=== PATIENT | female | born 1970 | race Caucasian/White ===

== ENCOUNTER 2018-11-23 10:12 | Emergency (ER) | payer BC ==
[2018-11-23] MEDS ORDERED: ACETAMINOPHEN 1,000 MG/100 ML BTL IVPB ONE (10:32)
[2018-11-23] MEDS ORDERED: 0.9 % SODIUM CHLORIDE 1,000 ML BAG IV ONE (10:32)
[2018-11-23] MEDS ORDERED: ONDANSETRON HCL IV 4 MG/2 ML VIAL IV ONE (10:32)
--- NOTE | 2018-11-23 10:36 | Emergency Department Record ---
History of Present Illness - General Chief Complaint: Abdominal Pain Stated Complaint: ABD PAIN Time Seen by Provider: 11/23/18 10:28 Source: Patient Mode of Arrival: Ambulatory Limitations: No limitations - History of Present Illness Initial Comments: The patient is here due to a 3 day hx of progressively worsening Right sided AP. The pain is sharp and crampy and worse with movement and coughing. She states her appetite has not been good. There has been no reported dysuria, fever, chills, vaginal discharge or bleeding. The patient's only abdominal surgery is a Laparoscopy at age 17. MD Complaint: Abdominal pain Onset/Timin -: Days(s) Location: RLQ Radiation: None Migration to: No migration Severity scale (1-10): 2 Consistency: Constant Improves With: Rest Worsens With: Movement Associated Symptoms: Nausea - Related Data Patient : No Home Medications Medication Instructions Recorded Confirmed Last Taken Omeprazole/Sodium Bicarbonate 1 each PO DAILY 11/23/18 11/23/18 Unknown [Zegerid 40 mg Capsule] Previous Rx's Medication Instructions Recorded Sulfamethoxazole/Trimethoprim 1 tab PO BID #6 tab 11/23/18 [Bactrim Ds] Allergies Allergy/AdvReac Type Severity Reaction Status Date / Time No Known Drug Allergies Allergy Unverified 11/23/18 09:31 Travel Screening - Travel/Exposure Within Last 30 Days Have you traveled within the last 30 days?: No Review of Systems Constitutional: Denies: Chills, Fever Eyes: Denies: Eye discharge ENT: Denies: Congestion Respiratory: Denies: Cough, Dyspnea Past Medical History - SOCIAL HISTORY Smoking Status: Never smoker Alcohol Use: Occasional Drug Use: None - RESPIRATORY Hx Respiratory Disorders: No - CARDIOVASCULAR Hx Palpitations: Yes (PVCs) - NEURO Hx Neuro Disorders: No - GI Hx Reflux: Yes - Hx Genitourinary Disorders: No - ENDOCRINE Hx Endocrine Disorders: Yes Hx Diabetes: No Hx Thyroid Disease: Yes (hypo) - MUSCULOSKELETAL Hx Musculoskeletal Disorders: No - PSYCH Hx Psych Problems: No - HEMATOLOGY/ONCOLOGY Hx Anemia: Yes Hx Cancer: No Family Medical History Any Significant Family History?: Yes Hx Heart Disease: Grandparents Hx HTN: Father, Mother, Grandparents Hx Stroke: Father, Grandparents Physical Exam - General General Appearance: Alert, Oriented x3, Cooperative, No acute distress - Head Head exam: Atraumatic, Normocephalic, Normal inspection - Eye Eye exam: Normal appearance, PERRL - ENT Throat exam: Normal inspection. negative: Tonsillar erythema, Tonsillar exudate - Neck Neck exam: Normal inspection, Full ROM. negative: Tenderness - Respiratory Respiratory exam: Normal lung sounds bilaterally. negative: Respiratory distr ess - Cardiovascular Cardiovascular Exam: Regular rate, Normal rhythm, Normal heart sounds - GI/Abdominal GI/Abdominal exam: Soft, Tenderness (There is significant tenderness over the R side of the abdomen RUQ>RLQ.). negative: Guarding, Organomegaly, Pulsatile mass, Rebound, Rigid - Extremities Extremities exam: Normal inspection, Full ROM, Normal capillary refill. negative: Tenderness Image of Full Body: 1 - Area of pain and tenderness. - Neurological Neurological exam: Alert. negative: Motor sensory deficit Course Vital Signs 11/23/18 10:15 Temperature 99.0 F Pulse Rate 88 Respiratory 20 Rate Blood Pressure 126/80 Pulse Ox 96 - Reevaluation(s) Reevaluation #1: The patient is doing better at this time but is still having some pain. On exam the abdomen is soft with tenderness in the RUQ only. The patient no longer has any RLQ tenderness. It appears she has a normal WBC and a neg CT for appendici tis. 11/23/18 12:30 Reevaluation #2: The patient is doing better at this time but is still having some pain. I did discuss the US results and the need for a Surgical consultation. 11/23/18 14:03 Reevaluation #3: I did discuss the case with Dr. Gonzales and he would like to see the patient on Wednesday to remove the GB. The patient agrees with that plan. She will be discharged with instructions to return to the ER for any worsening symptoms. Presently the patient is very stable and without any pain or any abdominal tenderness. She is up walking with no problems or pain. 11/23/18 14:52 Medical Decision Making - Data Complexity MDM Data: Labs Ordered and/or Reviewed, X-Ray Ordered and/or Reviewed - Lab Data Result diagrams: 11/23/18 10:45 11/23/18 10:45 - Radiology Data Radiology results: Report reviewed (Abd CT: Neg for stone, hydro or Appendicitis. US: Large mobile gallstone 2.7 mm with possible slight GB wall thickening and a positive Dunbar's sign.) Disposition Disposition: Discharge Clinical Impression: Biliary colic Disposition: Home, Self-Care Condition: (2) Stable Instructions: Abdominal Pain (ED) Additional Instructions: Please plan on having your Gallbladder removed Wednesday morning by Dr. Gonzales. Eat a very bland diet with no fatty or fried foods. Use Tylenol or Motrin for pain and return to the ER for any worsening symptoms, pain, fever, or vomiting. Plan on being NPO past midnight. Take the Bactrim as directed. Prescriptions: Sulfamethoxazole/Trimethoprim [Bactrim Ds] 1 tab PO BID #6 tab Referrals: [facility] Specialty Clin[facility] [Provider Group] Darrell Gonzales [DOCTOR OF OSTEOPATH] - Forms: Patient Portal Access Time of Disposition: 14:55 Quality - Quality Measures Quality Measures: N/A - Blood Pressure Screening View Details: Yes Does Patient Have Any of the Following: No Blood Pressure Classification: Pre-Hypertensive BP Reading Systolic Measurement: 126 Diastolic Measurement: 80 Screening for High Blood Pressure: < Pre-Hypertensive BP, F/U Documented > [G8 950] Pre-Hypertensive Follow-up Interventions: Referral to alternative/primary care provider.
[2018-11-23 10:43] LABS: URINE APPEARANCE CLEAR; URINE BILIRUBIN NEGATIVE (NEGATIVE); URINE BLOOD NEGATIVE (NEGATIVE); URINE COLOR YELLOW; URINE GLUCOSE (UA) NEGATIVE (NEGATIVE); URINE KETONE 15 mg/dL (NEGATIVE); URINE LEUKOCYTE ESTERASE SMALL (NEGATIVE); URINE NITRITE NEGATIVE (NEGATIVE); URINE PROTEIN NEGATIVE (NEGATIVE); URINE UROBILINOGEN 0.2 E.U./dL (0.20 - 1.00)
[2018-11-23 10:47] LABS: HCG,QUALITATIVE URINE NEGATIVE (NEGATIVE)
[2018-11-23 11:01] LABS: URINE BACTERIA FEW; URINE RBC 0 - 2 (NONE SEEN)
[2018-11-23 11:13] LABS: ABSOLUTE NEUTROPHIL COUNT 4.14; BASO % 0.5 % (0-6); EOS % 1.2 % (0-6); HEMATOCRIT 39.3 % (35.0-47.0); HEMOGLOBIN 13.1 gm/dl (11.6-16.0); LYMPH % 17.5 % (16-45); MEAN CELL VOLUME 96.8 fl (81-97); MEAN CORPUSCULAR HEMOGLOBIN 32.3 pg (27-33); MEAN CORPUSCULAR HGB CONC 33.3 g/dl (32-36); MEAN PLATELET VOLUME 9.8 fl (7.4-10.4); MONO % 9.8 % (0-9); PLATELET COUNT 237 K/uL (130-400); RED BLOOD COUNT 4.06 M/uL (3.80-5.40); RED CELL DISTRIBUTION WIDTH 13.1 % (11.5-14.5); WHITE BLOOD COUNT W/O DIFF 5.8 K/uL (4.2-12.2)
[2018-11-23 11:21] LABS: BLOOD UREA NITROGEN 8 mg/dL (6-20); CREATININE 0.6 mg/dL (0.5-0.9); EST GLOMERULAR FILTRATION RATE > 60 mL/min
[2018-11-23 11:24] LABS: GLUCOSE,RANDOM 85 mg/dL (74-109)
[2018-11-23] MEDS ORDERED: KETOROLAC 30 MG/ML VIAL IVP ONE (11:58)
[2018-11-23 12:16] LABS: LIPASE 36 U/L (13-60)
[2018-11-23 12:21] LABS: ALBUMIN 4.3 g/dL (4.0-5.0); ALKALINE PHOSPHATASE 76 U/L (35-104); ALT/SGPT 33 U/L (<33); AST/SGOT 41 U/L (10.0-35.0)
[2018-11-23 12:23] LABS: BILIRUBIN,DIRECT < 0.2 mg/dL (0-0.3)
--- NOTE | 2018-11-24 10:01 | CT SCAN REPORT ---
EXAM: CT OF THE ABDOMEN AND PELVIS WITHOUT CONTRAST HISTORY: RIGHT LOWER QUADRANT ABDOMINAL PAIN. FEVER AND NAUSEA. TECHNIQUE: Helical CT examination of the abdomen and pelvis was performed without oral or intravenous contrast administration. Lack of oral and IV contrast utilization limits evaluation of the bowel and solid viscera respectively. Comparison: None. FINDINGS: Mild dependent atelectasis is present in each lung base. The visualized lung bases are otherwise clear and there is no pleural or pericardial effusion. The heart is not enlarged. The liver, spleen, pancreas, adrenal glands and kidneys are normal in appearance. There is no evidence of obstructive uropathy. No definite calcified gallstone or pericholecystic fluid. There is questionable borderline wall thickening of the gallbladder fundus. No biliary ductal dilatation. No intraabdominal nor retroperitoneal lymphadenopathy. The intraabdominal and retroperitoneal fat are clear. No pelvic mass, lymphadenopathy, or free pelvic fluid. No intrinsic urinary bladder abnormality though evaluation is limited by lack of distention. No gross bowel dilatation nor bowel wall thickening. The appendix is visualized and normal in appearance. There is a small fat filled uncomplicated umbilical hernia. No lytic or blastic bone lesion. There are mild degenerative changes of the lower lumbar spine. IMPRESSION: 1. THE EXAMINATION IS MILDLY LIMITED BY LACK OF ORAL AND IV CONTRAST UTILIZATION. 2. NO DEFINITE CT EVIDENCE OF AN ACUTE INTRAABDOMINAL NOR INTRAPELVIC PROCESS. 3. NORMAL APPENDIX. 4. MILD DEPENDENT ATELECTASIS IN EACH LUNG BASE. 5. APPARENT BORDERLINE WALL THICKENING OF THE GALLBLADDER FUNDUS VERSUS ARTIFACT. JOB NUMBER: [id number] [facility]
--- NOTE | 2018-11-24 10:20 | ULTRASOUND REPORT ---
EXAM: ULTRASOUND OF THE ABDOMEN COMPLETE HISTORY: RIGHT UPPER QUADRANT ABDOMINAL PAIN FOR THREE DAYS. TECHNIQUE: Routine ultrasound examination of the abdomen was performed. Comparison: Same day CT abdomen and pelvis without contrast. FINDINGS: The pancreas, abdominal aorta, and inferior vena cava are normal in appearance. The liver is homogeneous in echotexture and there is no intra nor extrahepatic biliary ductal dilatation with the common hepatic duct measuring 4 mm. There is a large mobile shadowing gallstone measuring 2.7 cm in maximum diameter. This was not well visualized on the same day CT examination though likely causes the apparent borderline wall thickening demonstrated on CT images. No gallbladder wall thickening or pericholecystic fluid is seen. There is a reported positive sonographic Dunbar's sign. The spleen is not enlarged and is homogeneous in echotexture. Screening evaluation of the kidneys does not demonstrate hydronephrosis nor mass with the right kidney measuring 10 cm in length and the left kidney measuring 9.8 cm in length. IMPRESSION: 1. LARGE MOBILE GALLSTONE MEASURING 2.7 CM. NO GALLBLADDER WALL THICKENING OR PERICHOLECYSTIC FLUID THOUGH THERE IS A REPORTED POSITIVE SONOGRAPHIC DUNBAR'S SIGN AND EARLY ACUTE CHOLECYSTITIS CANNOT BE EXCLUDED. 2. OTHERWISE NEGATIVE EXAMINATION. JOB NUMBER: [id number] [facility]
== END 2018-11-23 15:13 | disposition home or self-care (01) ==
LOC: ER 10:12
DX: K80.50 Calculus of bile duct without cholangitis or cholecystitis without obstruction (principal); R11.0 Nausea; R50.81 Fever presenting with conditions classified elsewhere
CPT/HCPCS: 99284 ×2; 96365; 96375; 83690; 85025; 80076; 80048; 81001; 81025; 76700; 74176; J2405; J7030

== ENCOUNTER 2018-12-02 05:23 | Emergency (ER) | payer BC ==
[2018-12-02] MEDS ORDERED: 0.9 % SODIUM CHLORIDE 1,000 ML BAG IV ONE (05:41)
[2018-12-02] MEDS ORDERED: ONDANSETRON HCL IV 4 MG/2 ML VIAL IV ONE (05:41)
[2018-12-02] MEDS ORDERED: HYDROMORPHONE HCL 2 MG/ML VIAL IVP ONE ×2 (05:43→06:53)
[2018-12-02 05:52] LABS: BASO % 0.9 % (0-6); EOS % 3.3 % (0-6); HEMATOCRIT 40.7 % (35.0-47.0); HEMOGLOBIN 13.5 gm/dl (11.6-16.0); MEAN CELL VOLUME 96.4 fl (81-97); MEAN CORPUSCULAR HGB CONC 33.2 g/dl (32-36); MEAN PLATELET VOLUME 9.3 fl (7.4-10.4); MONO % 14.8 % (0-9); PLATELET COUNT 334 K/uL (130-400); RED BLOOD COUNT 4.22 M/uL (3.80-5.40); RED CELL DISTRIBUTION WIDTH 13.2 % (11.5-14.5); WHITE BLOOD COUNT W/O DIFF 5.4 K/uL (4.2-12.2)
--- NOTE | 2018-12-02 05:52 | Emergency Department Record ---
History of Present Illness - General Chief Complaint: Abdominal Pain Stated Complaint: POST OP NAUSEA/VOMITING Time Seen by Provider: 12/02/18 05:34 Source: Patient Mode of Arrival: Ambulatory Limitations: No limitations - History of Present Illness Initial Comments: pt had a ivan on wednesday. she has been doing well. she had a bm on wed. 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 MD Complaint: Abdominal pain Onset/Timin -: Hour(s) Location: Diffuse, LUQ, RUQ Radiation: None Migration to: No migration Severity: Severe Severity scale (1-10): 9 Quality: Fullness, Other Consistency: Constant, Getting worse Worsens With: Movement, Other Context: Recent surgery/procedure Associated Symptoms: Nausea, Vomiting Treatments Prior to Arrival: NSAIDs, Other - Related Data LMP (females 10-50): Unknown Patient : No Hx Age of Menopause: 46 Allergies Allergy/AdvReac Type Severity Reaction Status Date / Time No Known Drug Allergies Allergy Unverified 11/23/18 09:31 Travel Screening - Travel/Exposure Within Last 30 Days Have you traveled within the last 30 days?: No - Travel Symptoms Symptom Screening: Vomiting Review of Systems Reviewed: No additional complaints except as noted below Constitutional: Reports: As per HPI. Denies: Chills, Fever, Malaise, Night sweats, Weakness, Weight change Eyes: Reports: As per HPI. Denies: Eye discharge, Eye pain, Photophobia, Vision change ENT: Reports: As per HPI. Denies: Congestion, Dental pain, Ear pain, Epistaxis, Hearing loss, Throat pain Respiratory: Reports: As per HPI. Denies: Cough, Dyspnea, Hemoptysis, Stridor, Wheezes Cardiovascular: Reports: As per HPI. Denies: Arrhythmia, Chest pain, Dyspnea on exertion, Edema, Murmurs, Orthopnea, Palpitations, Paroxysmal nocturnal dyspnea, Rheumatic Fever, Syncope Endocrine: Reports: As per HPI. Denies: Fatigue, Heat or cold intolerance, Polydipsia, Polyuria Gastrointestinal: Reports: As per HPI, Abdominal pain. Denies: Constipation, Diarrhea, Hematemesis, Hematochezia, Melena, Nausea, Vomiting Genitourinary: Reports: As per HPI. Denies: Abnormal menses, Discharge, Dyspareunia, Dysuria, Frequency, Hematuria, Incontinence, Retention, Urgency Musculoskeletal: Reports: As per HPI. Denies: Arthralgia, Back pain, Gout, Joint swelling, Myalgia, Neck pain Skin: Reports: As per HPI. Denies: Bruising, Change in color, Change in hair/nails, Lesions, Pruritus, Rash Neurological: Reports: As per HPI. Denies: Abnormal gait, Confusion, Headache, Numbness, Paresthesias, Seizure, Tingling, Tremors, Vertigo, Weakness Psychiatric: Reports: As per HPI. Denies: Anxiety, Auditory hallucinations, Depression, Homicidal thoughts, Suicidal thoughts, Visual hallucinations Hematological/Lymphatic: Reports: As per HPI. Denies: Anemia, Blood Clots, Easy bleeding, Easy bruising, Swollen glands Past Medical History - SOCIAL HISTORY Smoking Status: Never smoker Alcohol Use: None Drug Use: None - RESPIRATORY Hx Respiratory Disorders: No - CARDIOVASCULAR Hx Cardio Disorders: Yes Hx Palpitations: Yes (PVCs IN THE PAST) - NEURO Hx Neuro Disorders: No - GI Hx GI Disorders: Yes Hx Abdominal Pain: Yes (MID TO RIGHT UPPER QUAD) Hx Reflux: Yes (ON MEDS) Hx Nausea/Vomiting: Yes (NAUSEA) - Hx Genitourinary Disorders: Yes Hx Bladder Problem: Yes (ON MEDS FOR PAINFUL BLADDER) Comment:: LAST PERIOD OVER 1 YR AGO - ENDOCRINE Hx Endocrine Disorders: Yes Hx Diabetes: No Hx Thyroid Disease: Yes (hypo) - MUSCULOSKELETAL Hx Musculoskeletal Disorders: Yes - PSYCH Hx Psych Problems: No - HEMATOLOGY/ONCOLOGY Hx Hematology/Oncology Disorders: Yes Hx Anemia: Yes (AT TIMES) Hx Cancer: No Family Medical History Any Significant Family History?: Yes Hx Heart Disease: Grandparents Hx HTN: Father, Mother, Grandparents Hx Stroke: Father, Grandparents Physical Exam - General General Appearance: Alert, Oriented x3, Cooperative, Mild distress - Head Head exam: Normal inspection - Eye Eye exam: Normal appearance, PERRL, EOMI Pupils: Normal accommodation - ENT ENT exam: Normal exam, Mucous membranes moist, Normal external ear exam, Normal orophraynx Ear exam: Normal external inspection. negative: External canal tenderness Nasal Exam: Normal inspection. negative: Discharge, Sinus tenderness Mouth exam: Normal external inspection, Tongue normal Teeth exam: Normal inspection. negative: Dental caries Throat exam: Normal inspection. negative: Tonsillar erythema, Tonsillar exudate - Neck Neck exam: Normal inspection, Full ROM. negative: Tenderness - Respiratory Respiratory exam: Normal lung sounds bilaterally. negative: Respiratory distress - Cardiovascular Cardiovascular Exam: Regular rate, Normal rhythm, Normal heart sounds - GI/Abdominal GI/Abdominal exam: Soft, Normal bowel sounds, Distended, Tenderness - Rectal Rectal exam: Deferred - exam: Deferred - Extremities Extremities exam: Normal inspection, Full ROM, Normal capillary refill. negative: Tenderness - Back Back exam: Reports: Normal inspection, Full ROM. Denies: Muscle spasm, Rash noted, Tenderness - Neurological Neurological exam: Alert, CN II-XII intact, Normal gait, Oriented X3 - Psychiatric Psychiatric exam: Normal affect, Normal mood - Skin Skin exam: Dry, Intact, Normal color, Warm Course Vital Signs 12/02/18 05:28 Temperature 97.6 F Pulse Rate 62 Respiratory 20 Rate Blood Pressure 143/88 Pulse Ox 98 - Reevaluation(s) Reevaluation #1: 12/02/18 07:06 care [address] over [address] reyes Medical Decision Making - Lab Data Result diagrams: 12/02/18 05:38 12/02/18 05:38 Disposition Forms: Patient Portal Access Quality - Quality Measures Quality Measures: N/A - Blood Pressure Screening Does Patient Have Any of the Following: No Blood Pressure Classification: Pre-Hypertensive BP Reading Systolic Measurement: 143 Diastolic Measurement: 88 Screening for High Blood Pressure: < Pre-Hypertensive BP, F/U Documented > [G8950] Pre-Hypertensive Follow-up Interventions: Follow-up with rescreen every year.
[2018-12-02 06:05] LABS: BLOOD UREA NITROGEN 7 mg/dL (6-20); CREATININE 0.6 mg/dL (0.5-0.9); EST GLOMERULAR FILTRATION RATE > 60 mL/min
[2018-12-02 06:06] LABS: LIPASE 37 U/L (13-60); TOTAL PROTEIN 7.7 g/dL (6.6-8.7)
[2018-12-02 06:08] LABS: GLUCOSE,RANDOM 121 mg/dL (74-109)
[2018-12-02 06:10] LABS: ALB/GLOB RATIO 1.2 (1.1-1.8); ALBUMIN 4.2 g/dL (4.0-5.0); ALKALINE PHOSPHATASE 76 U/L (35-104); ALT/SGPT 31 U/L (<33); AST/SGOT 32 U/L (10.0-35.0)
--- NOTE | 2018-12-02 07:23 | Emergency Department Record ---
History of Present Illness - General Chief Complaint: Abdominal Pain Stated Complaint: POST OP NAUSEA/VOMITING Time Seen by Provider: 12/02/18 05:34 Source: Patient Mode of Arrival: Ambulatory Limitations: No limitations - History of Present Illness Initial Comments: abdominal pain which started at 2 am and had one BM after taking episom salt and had multple BM's and she ate food yesterday and may have had bad food. Vomited times one and pain is better after dilaudid times two. some periumbilical erythema at the port site. GB removed by Dr. Gonzales 4 days ago. Complaint: Abdominal pain Onset/Timin -: Hour(s) Location: Diffuse, LUQ, RUQ Radiation: None Migration to: No migration Severity: Severe Severity scale (1-10): 9 Quality: Fullness, Other Consistency: Constant, Getting worse Worsens With: Movement, Other Context: Recent surgery/procedure Associated Symptoms: Nausea, Vomiting Treatments Prior to Arrival: NSAIDs, Other - Related Data LMP (females 10-50): Unknown Patient : No Hx Age of Menopause: 46 Previous Rx's Medication Instructions Recorded Dicyclomine HCl [Bentyl] 10 mg PO Q8H #20 cap 12/02/18 Allergies Allergy/AdvReac Type Severity Reaction Status Date / Time No Known Drug Allergies Allergy Unverified 11/23/18 09:31 Travel Screening - Travel/Exposure Within Last 30 Days Have you traveled within the last 30 days?: No - Travel Symptoms Symptom Screening: Vomiting Review of Systems Constitutional: Reports: As per HPI. Denies: Chills, Fever, Malaise, Night sweats, Weakness, Weight change Eyes: Reports: As per HPI. Denies: Eye discharge, Eye pain, Photophobia, Vision change ENT: Reports: As per HPI. Denies: Congestion, Dental pain, Ear pain, Epistaxis, Hearing loss, Throat pain Respiratory: Reports: As per HPI. Denies: Cough, Dyspnea, Hemoptysis, Stridor, Wheezes Cardiovascular: Reports: As per HPI. Denies: Arrhythmia, Chest pain, Dyspnea on exertion, Edema, Murmurs, Orthopnea, Palpitations, Paroxysmal nocturnal dyspnea, Rheumatic Fever, Syncope Endocrine: Reports: As per HPI. Denies: Fatigue, Heat or cold intolerance, Polydipsia, Polyuria Gastrointestinal: Reports: As per HPI, Abdominal pain. Denies: Constipation, Diarrhea, Hematemesis, Hematochezia, Melena, Nausea, Vomiting Genitourinary: Reports: As per HPI. Denies: Abnormal menses, Discharge, Dyspareunia, Dysuria, Frequency, Hematuria, Incontinence, Retention, Urgency Musculoskeletal: Reports: As per HPI. Denies: Arthralgia, Back pain, Gout, Joint swelling, Myalgia, Neck pain Skin: Reports: As per HPI. Denies: Bruising, Change in color, Change in hair/nails, Lesions, Pruritus, Rash Neurological: Reports: As per HPI. Denies: Abnormal gait, Confusion, Headache, Numbness, Paresthesias, Seizure, Tingling, Tremors, Vertigo, Weakness Psychiatric: Reports: As per HPI. Denies: Anxiety, Auditory hallucinations, Depression, Homicidal thoughts, Suicidal thoughts, Visual hallucinations Hematological/Lymphatic: Reports: As per HPI. Denies: Anemia, Blood Clots, Easy bleeding, Easy bruising, Swollen glands Past Medical History - SOCIAL HISTORY Smoking Status: Never smoker Alcohol Use: None Drug Use: None - RESPIRATORY Hx Respiratory Disorders: No - CARDIOVASCULAR Hx Cardio Disorders: Yes Hx Palpitations: Yes (PVCs IN THE PAST) - NEURO Hx Neuro Disorders: No - GI Hx GI Disorders: Yes Hx Abdominal Pain: Yes (MID TO RIGHT UPPER QUAD) Hx Reflux: Yes (ON MEDS) Hx Nausea/Vomiting: Yes (NAUSEA) - Hx Genitourinary Disorders: Yes Hx Bladder Problem: Yes (ON MEDS FOR PAINFUL BLADDER) Comment:: LAST PERIOD OVER 1 YR AGO - ENDOCRINE Hx Endocrine Disorders: Yes Hx Diabetes: No Hx Thyroid Disease: Yes (hypo) - MUSCULOSKELETAL Hx Musculoskeletal Disorders: Yes - PSYCH Hx Psych Problems: No - HEMATOLOGY/ONCOLOGY Hx Hematology/Oncology Disorders: Yes Hx Anemia: Yes (AT TIMES) Hx Cancer: No Family Medical History Any Significant Family History?: Yes Hx Heart Disease: Grandparents Hx HTN: Father, Mother, Grandparents Hx Stroke: Father, Grandparents Physical Exam - General General Appearance: Alert, Oriented x3, Cooperative, No acute distress Limitations: No limitations - Head Head exam: Normal inspection - Eye Eye exam: Normal appearance, PERRL Pupils: Normal accommodation - ENT ENT exam: Normal exam, Mucous membranes moist, Normal external ear exam, Normal orophraynx, TM's normal bilaterally Ear exam: Normal external inspection. negative: External canal tenderness Nasal Exam: Normal inspection. negative: Discharge, Sinus tenderness Mouth exam: Normal external inspection, Tongue normal Teeth exam: Normal inspection. negative: Dental caries Throat exam: Normal inspection. negative: Tonsillar erythema, Tonsillar exudate - Neck Neck exam: Normal inspection, Full ROM. negative: Tenderness - Respiratory Respiratory exam: Normal lung sounds bilaterally. negative: Respiratory distress - Cardiovascular Cardiovascular Exam: Regular rate, Normal rhythm, Normal heart sounds - GI/Abdominal GI/Abdominal exam: Soft, Normal bowel sounds, Tenderness (upper abd pain on palpation) - Rectal Rectal exam: Deferred - exam: Deferred - Extremities Extremities exam: Normal inspection, Full ROM, Normal capillary refill. negative: Tenderness - Back Back exam: Reports: Normal inspection, Full ROM. Denies: Muscle spasm, Rash noted, Tenderness - Neurological Neurological exam: Alert, Normal gait, Oriented X3, Reflexes normal - Psychiatric Psychiatric exam: Normal affect, Normal mood - Skin Skin exam: Dry, Intact, Normal color, Warm Course Vital Signs 12/02/18 12/02/18 05:28 06:35 Temperature 97.6 F Pulse Rate 62 Pulse Rate [ 66 Pulse Ox Probe] Respiratory 20 18 Rate Blood Pressure 143/88 Blood Pressure 123/72 [Right Arm] Pulse Ox 98 100 - Reevaluation(s) Reevaluation #1: Discussed case with Dr Gonzales and he said if still having problems wednesday see him in the clinic on wednesday. 12/02/18 08:05 Medical Decision Making - Data Complexity MDM Data: Labs Ordered and/or Reviewed (WBC 5,400), X-Ray Ordered and/or Reviewed (CT scan No suspicious fluid in the GB fosa and trace fluid inferior liver edge and pelvis. No bowel obstruction,no free air,no abscess) - Lab Data Result diagrams: 12/02/18 05:38 12/02/18 05:38 Lab Results 12/02/18 12/02/18 Range/Units 05:38 05:38 WBC 5.4 (4.2-12.2) K/uL RBC 4.22 (3.80-5.40) M/uL Hgb 13.5 (11.6-16.0) gm/dl Hct 40.7 (35.0-47.0) % MCV 96.4 (81-97) fl MCH 32.0 (27-33) pg MCHC 33.2 (32-36) g/dl RDW 13.2 (11.5-14.5) % Plt Count 334 (130-400) K/uL MPV 9.3 (7.4-10.4) fl Gran % 39.0 L (47-80) % Lymphocytes % 42.0 (16-45) % Monocytes % 14.8 H (0-9) % Eosinophils % 3.3 (0-6) % Basophils % 0.9 (0-6) % Absolute Neutrophils 2.10 Sodium 137 (136-145) mmol/L Potassium 3.8 (3.4-4.5) mmol/L Chloride 99 (98-107) mmol/L Carbon Dioxide 25.0 (22-29) mmol/L Anion Gap 13.0 (7-16) BUN 7 (6-20) mg/dL Creatinine 0.6 (0.5-0.9) mg/dL Estimated GFR > 60 mL/min Random Glucose 121 H (74-109) mg/dL Calcium 9.1 (8.6-10.0) mg/dL Total Bilirubin 0.20 (0.2-1.0) mg/dL AST 32 (10.0-35.0) U/L ALT 31 (<33) U/L Alkaline Phosphatase 76 (35-104) U/L Total Protein 7.7 (6.6-8.7) g/dL Albumin 4.2 (4.0-5.0) g/dL Globulin 3.5 (1.4-4.8) gm/dL Albumin/Globulin Ratio 1.2 (1.1-1.8) Lipase 37 (13-60) U/L Disposition Clinical Impression: Abdominal pain Qualifiers: Abdominal location: upper abdomen, unspecified Qualified Code(s): R10.10 - Upper abdominal pain, unspecified Disposition: Home, Self-Care Condition: (2) Stable Instructions: Abdominal Pain (ED) Additional Instructions: follow uo with Dr Gonzales on wednesday if still having problems and clear liquids for 6 hours than bland foods Prescriptions: Dicyclomine HCl [Bentyl] 10 mg PO Q8H #20 cap Forms: Patient Portal Access Time of Disposition: 08:50 Quality - Quality Measures Quality Measures: N/A - Blood Pressure Screening Does Patient Have Any of the Following: No Blood Pressure Classification: Pre-Hypertensive BP Reading Systolic Measurement: 143 Diastolic Measurement: 88 Screening for High Blood Pressure: < Pre-Hypertensive BP, F/U Documented > [G8950] Pre-Hypertensive Follow-up Interventions: Referral to alternative/primary care provider.
[2018-12-02 07:29] LABS: URINE BILIRUBIN NEGATIVE (NEGATIVE); URINE BLOOD NEGATIVE (NEGATIVE); URINE COLOR YELLOW; URINE GLUCOSE (UA) NEGATIVE (NEGATIVE); URINE KETONE NEGATIVE (NEGATIVE); URINE LEUKOCYTE ESTERASE MODERATE (NEGATIVE); URINE NITRITE NEGATIVE (NEGATIVE); URINE PROTEIN NEGATIVE (NEGATIVE); URINE UROBILINOGEN 0.2 E.U./dL (0.20 - 1.00)
[2018-12-02] MEDS ORDERED: SUCRALFATE 1 G/10 ML UD PO ONE (07:40)
[2018-12-02] MEDS ORDERED: 0.9 % SODIUM CHLORIDE 1000ML 1,000 ML IV SCH (08:00)
[2018-12-02 10:36] LABS: URINE APPEARANCE SL CLOUDY
[2018-12-02 10:37] LABS: URINE RBC 0 - 2 (NONE SEEN); URINE SQUAMOUS EPITHELIAL CELL 16 - 20 /hpf
[2018-12-02 10:38] LABS: URINE BACTERIA 1+
--- NOTE | 2018-12-02 15:29 | CT SCAN REPORT ---
EXAM: CT OF THE ABDOMEN AND PELVIS WITHOUT CONTRAST HISTORY: DIFFUSE UPPER ABDOMINAL PAIN WITH NAUSEA AND BLOATING FOR THREE HOURS. PRIOR CHOLECYSTECTOMY ON 11/28/18. TECHNIQUE: Helical CT examination of the abdomen and pelvis was performed without oral nor intravenous contrast. Lack of oral and IV contrast utilization limits evaluation of bowel and solid viscera. Comparison: Abdominal ultrasound dated 11/23/18. CT of the abdomen and pelvis without contrast dated 11/23/18. FINDINGS: There is minor dependent atelectasis within the lung bases. The lung bases are otherwise clear and there is no pleural or pericardial effusion. The heart is not enlarged. There has been interval cholecystectomy. There is trace free fluid in the dependent pelvis and along the inferior margin of the liver. No suspicious fluid collection is demonstrated within the gallbladder fossa. No new focal abnormality within the liver, spleen, pancreas, adrenal glands, nor kidneys. No biliary ductal dilatation. No intraabdominal nor retroperitoneal lymphadenopathy. The vasculature is normal in caliber. No new pelvic mass nor adenopathy. No intrinsic urinary bladder abnormality is seen. There is a moderate to large amount of stool scattered throughout the colon. The appendix is not visualized with confidence though no inflammatory changes are noted in its expected location. Several nonenlarged mesenteric lymph nodes are present in the right lower quadrant. No bowel dilatation nor extraluminal air. Post laparoscopy changes are noted in the umbilical region and right upper quadrant abdominal wall. No lytic or blastic bone lesion. IMPRESSION: 1. INTERVAL CHOLECYSTECTOMY. TRACE FLUID IS DEMONSTRATED ALONG THE INFERIOR MARGIN OF THE LIVER AND WITHIN THE DEPENDENT PELVIS. THIS IS NONSPECIFIC. NO SUSPICIOUS FLUID COLLECTION WITHIN THE GALLBLADDER FOSSA. 2. NO EVIDENCE OF ABSCESS NOR EXTRALUMINAL AIR. NO BOWEL OBSTRUCTION. 3. POST SURGICAL CHANGES WITHIN THE UMBILICAL REGION AND RIGHT UPPER QUADRANT ABDOMINAL WALL. JOB NUMBER: [id number] [facility]
== END 2018-12-02 09:32 | disposition home or self-care (01) ==
LOC: ER 05:23
DX: R10.12 Left upper quadrant pain (principal); R10.11 Right upper quadrant pain; R11.2 Nausea with vomiting, unspecified; Z90.49 Acquired absence of other specified parts of digestive tract
CPT/HCPCS: 99284 ×2; 96376; 96374; 96375; 96361; 83690; 85025; 80053; 81001; 74176; J2405; J1170; J7030

== ENCOUNTER 2018-12-31 04:51 | Emergency (ER) | payer BC ==
[2018-12-31] MEDS ORDERED: IPRATROPIUM/ALBUTEROL (0.5MG/3MG) NEB INH ONE (04:59)
[2018-12-31] MEDS ORDERED: PREDNISONE 20 MG TAB PO ONE (04:59)
--- NOTE | 2018-12-31 05:06 | Emergency Department Record ---
History of Present Illness - General Chief Complaint: Cough Stated Complaint: COUGHING,WEEZING Time Seen by Provider: 12/31/18 04:52 Source: Patient Mode of Arrival: Ambulatory Limitations: No limitations - History of Present Illness Initial Comments: 48 yo female presents with cough, wheezing, and low grade temperatures (99). She states over several months she has had symptoms similar to this. The symptoms often occur at this time of day. She wakes up with minimally productive cough and wheeze. She has not looked at the sputum. She denies asth ma history. She is a non smoker. She was seen in the [facility] once for similar symptoms. She called her PCP and has an appointment February 06. No chest pain. No leg swelling or calf pain. MD Complaint: Cough, Shortness of breath -: Month(s) Quality: Other Consistency: Intermittent Improves With: Nothing Worsens With: Coughing Known History Of: Other Associated Symptoms: Cough Treatments Prior to Arrival: None - Related Data Previous Rx's Medication Instructions Recorded Dicyclomine HCl [Bentyl] 10 mg PO Q8H #20 cap 12/02/18 Albuterol Sulfate [Albuterol 8.5 gm IH Q4H PRN #1 hfa.aer.ad 12/31/18 Sulfate Hfa] Prednisone [Prednisone 20Mg] 20 mg PO BID #10 tab 12/31/18 Allergies Allergy/AdvReac Type Severity Reaction Status Date / Time No Known Drug Allergies Allergy Verified 12/31/18 05:16 Review of Systems Constitutional: Denies: Chills, Fever, Malaise, Weakness Eyes: Denies: Eye discharge, Eye pain ENT: Denies: Congestion, Throat pain Respiratory: Reports: Cough, Wheezes Cardiovascular: Denies: Chest pain, Edema, Palpitations, Syncope Endocrine: Denies: Fatigue, Polydipsia, Polyuria Gastrointestinal: Denies: Abdominal pain, Diarrhea, Nausea, Vomiting Genitourinary: Denies: Dysuria, Urgency Musculoskeletal: Denies: Arthralgia, Back pain, Myalgia, Neck pain Skin: Denies: Bruising, Change in color, Rash Neurological: Denies: Headache Psychiatric: Denies: Anxiety Hematological/Lymphatic: Denies: Blood Clots, Easy bleeding, Easy bruising, Swollen glands Past Medical History - SOCIAL HISTORY Smoking Status: Never smoker - RESPIRATORY Hx Respiratory Disorders: No - CARDIOVASCULAR Hx Cardio Disorders: Yes Hx Palpitations: Yes (PVCs IN THE PAST) - NEURO Hx Neuro Disorders: No - GI Hx GI Disorders: Yes Hx Abdominal Pain: Yes (MID TO RIGHT UPPER QUAD) Hx Reflux: Yes (ON MEDS) Hx Nausea/Vomiting: Yes (NAUSEA) - Hx Genitourinary Disorders: Yes Hx Bladder Problem: Yes (ON MEDS FOR PAINFUL BLADDER) Comment:: LAST PERIOD OVER 1 YR AGO - ENDOCRINE Hx Endocrine Disorders: Yes Hx Diabetes: No Hx Thyroid Disease: Yes (hypo) - MUSCULOSKELETAL Hx Musculoskeletal Disorders: Yes - PSYCH Hx Psych Problems: No - HEMATOLOGY/ONCOLOGY Hx Hematology/Oncology Disorders: Yes Hx Anemia: Yes (AT TIMES) Hx Cancer: No Family Medical History Any Significant Family History?: Yes Hx Heart Disease: Grandparents Hx HTN: Father, Mother, Grandparents Hx Stroke: Father, Grandparents Physical Exam - General General Appearance: Alert, Oriented x3, Cooperative, No acute distress Limitations: No limitations - Head Head exam: Atraumatic, Normal inspection - Eye Eye exam: Normal appearance. negative: Conjunctival injection, Periorbital swelling, Scleral icterus - ENT ENT exam: Normal exam, Mucous membranes moist Ear exam: Normal external inspection Nasal Exam: Normal inspection Mouth exam: Normal external inspection - Neck Neck exam: Normal inspection. negative: Lymphadenopathy, Tenderness - Respiratory Respiratory exam: Wheezes (minimal end expiratory wheeze). negative: Decreased breath sounds, Respiratory distress, Rhonchi, Stridor - Cardiovascular Cardiovascular Exam: Regular rate, Normal rhythm, Normal heart sounds Peripheral Pulses: 2+: Radial (R), Radial (L) - GI/Abdominal GI/Abdominal exam: negative: Soft, Tenderness - Rectal Rectal exam: Deferred - exam: Deferred - Extremities Extremities exam: negative: Calf tenderness, Pedal edema - Back Back exam: Reports: Full ROM - Neurological Neurological exam: Alert, Oriented X3 - Psychiatric Psychiatric exam: Normal affect, Normal mood - Skin Skin exam: Dry, Intact, Normal color, Warm Course - Reevaluation(s) Reevaluation #1: 12/31/18 05:06 The vitals were reviewed No acute abnormalities 12/31/18 05:35 The CXR was reviewed. My preliminary read is no acute process and no changes from the prior CXR in September On recheck after the Duoneb treatment the patient had improved air entry and improved breath sounds without end expiratory wheeze No signs of infectious cause of her cough/wheeze I recommended follow up with PCP and consider outpatient PFTs Also consider if night time reflux is a cause given the consistent timing in the night Disposition Disposition: Discharge Clinical Impression: Cough, Wheeze Disposition: Home, Self-Care Condition: (1) Good Instructions: Reactive Airways Disease (ED) Additional Instructions: Call your doctor for the next available follow up appointment to see if you can bee seen earlier than February 06 Discuss with your doctor possible outpatient Pulmonary Function Tests (PFT's) to further assess your wheeze and cough Review this ER visit and the tests performed with your family doctor Return to the ER for a recheck if worse, any new concerns or questions Take the prescriptions provided as directed Prescriptions: Albuterol Sulfate [Albuterol Sulfate Hfa] 8.5 gm IH Q4H PRN #1 hfa.aer.ad PRN Reason: Wheezing Prednisone [Prednisone 20Mg] 20 mg PO BID #10 tab Time of Disposition: 05:38 Quality - Quality Measures Quality Measures: N/A - Blood Pressure Screening Does Patient Have Any of the Following: No Systolic Measurement: ~ Screening for High Blood Pressure: < Pre-Hypertensive BP, F/U Documented > [G8950] Pre-Hypertensive Follow-up Interventions: Referral to alternative/primary care provider.
--- NOTE | 2019-01-01 12:17 | RADIOLOGY REPORT ---
EXAM: CHEST 2 VIEWS HISTORY: COUGH. LOW-GRADE FEVER. TECHNIQUE: Chest, two views. COMPARISON: 10/04/18. FINDINGS: The cardiomediastinal silhouette is unremarkable. Lungs are without focal consolidation or pleural effusion. There is mild biapical pleural scarring. IMPRESSION: NO ACUTE PROCESS. JOB NUMBER: [id number] [facility]
== END 2018-12-31 06:25 | disposition home or self-care (01) ==
LOC: ER 04:51
DX: R05 Cough (principal); R06.2 Wheezing
CPT/HCPCS: 71046; 94640; 99284; J7512